=== PATIENT | female | born 1990 | race Caucasian/White ===

== ENCOUNTER → 2017-11-01 | Outpatient (CLI) | payer OTHER ==
[2017-11-01 13:24] LABS: BASO % 0.1 %; BASO ABS # 0.01 K/uL (0-0.2); EOS % 1.3 %; EOS ABS # 0.11 K/uL (0-0.5); HEMATOCRIT 36.4 % (37-47); HEMOGLOBIN 12.8 g/dL (12.0-16.0); IG# 0.01 K/uL (0.00-0.02); LYMPH % 13.1 %; MEAN CELL VOLUME 89.7 fL (80-100); MEAN CORPUSCULAR HEMOGLOBIN 31.5 pg (25-34); MEAN CORPUSCULAR HGB CONC 35.2 g/dl (32-36); MEAN PLATELET VOLUME 10.9 fL (7.4-10.4); MONO ABS # 0.59 K/uL (0.11-0.59); NEUT % 78.4 %; NEUT ABS # 6.57 K/uL (1.4-6.5); PLATELET COUNT 266 K/uL (130-400); RED CELL DISTRIBUTION WIDTH CV 12.5 % (11.5-14.5); RED CELL DISTRIBUTION WIDTH SD 40.2 fL (36.4-46.3); WHITE BLOOD COUNT 8.39 K/uL (4.8-10.8)
== END | disposition home or self-care (01) ==
LOC: C.LAB1850 11:27
PROVIDERS: ATTEND Obstetrics & Gynecology
DX: Z34.01 Encounter for supervision of normal first pregnancy, first trimester (principal)

== ENCOUNTER → 2017-11-01 | Outpatient (CLI) | payer OTHER | END | disposition home or self-care (01) | LOC: C.PAPS 14:17 | PROVIDERS: ATTEND Obstetrics & Gynecology | DX: Z34.01 Encounter for supervision of normal first pregnancy, first trimester (principal) ==

== ENCOUNTER 2017-11-21 21:58 | Emergency (ER) | payer OTHER ==
[~2017-11-21] VITALS: Ht 162.6 cm; Wt 74.5 kg
[2017-11-21 22:01] VITALS: TEMP 36.5; Ht 162.6 cm; Wt 74.5 kg
[2017-11-21] MEDS ORDERED: PRENTAB26 PO (22:25)
[2017-11-21 23:08] VITALS: BP 109/79; PULSE 79; O2SAT 100
--- NOTE | 2017-11-21 23:18 | DIAGNOSTIC IMAGING REPORT ---
RIGHT FOOT 3 VIEWS HISTORY: fall, pain, 5th metatarsal base COMPARISON: None. FINDINGS: There is no fracture or dislocation. Soft tissues are unremarkable. No radiopaque foreign bodies. IMPRESSION: No fractures. Electronically signed by: Renato Olmedo M.D. 11/21/2017 11:17 PM Dictated Date/Time: 11/21/2017 11:14 PM
--- NOTE | 2017-11-21 23:51 | EMERGENCY ROOM VISIT NOTE ---
ED Visit Note First contact with patient: 22:05 CHIEF COMPLAINT: Foot pain HISTORY OF PRESENT ILLNESS: This 27 yo patient presents to the emergency department with family complaining of swelling and pain in the right foot at rest and worse with weight bearing. The patient twisted her foot on the vacuum. The patient rates the pain as throbbing and 6/10. The patient has taken APAP with some relief of the pain. The patient is able to walk. No numbness or weakness. No ankle pain. There are no lacerations of the foot. The patient is able to move all of their toes and their ankle without pain. no previous fracture to this foot. Patient is currently 12 weeks . She did not fall on her abdomen. She has no abdominal pain. REVIEW OF SYSTEMS: GENERAL: A 6 system review of systems was completed with positives and pertinent negatives in the HPI. ALLERGIES: Doxycycline MEDICATIONS: PMH: None SOCIAL HISTORY:no drug use PHYSICAL EXAM: Vital Signs: Reviewed Nurse's notes, vital signs stable. GENERAL : pleasant female, in no acute distress, but appears in pain, well-developed, well-nourished. MUSCULOSKELATAL: There is no visual deformity of the right foot. There is no erythema no ecchymosis. There is no warmth. There is tenderness and swelling over the lateral aspect of the right foot. There is no tenderness over the lateral or medial malleolus. No tenderness of the tib/fib. The range of motion of the foot is not limited secondary to pain. There is no tenderness over the plantar fascia. The skin is intact and there are no lacerations or puncture wounds. Dorsalis pedis pulse 2+. Capillary refill less than 2 seconds. EMERGENCY DEPARTMENT COURSE: I examined the patient. An X-ray of the right foot was reviewed by myself and my Attending and reveals no fracture. The patient was placed in post op shoe and instructed on the use of crutches. Patient was advised to follow-up with orthopedics if symptoms persist or here in the ER sooner for severe pain, numbness, tingling, worsening signs or symptoms or as needed. The patient was discharged home in good condition. heart tones 156. DIAGNOSIS: Right foot sprain TREATMENT: As below Current/Historical Medications Scheduled Multivit/Min/Iron/Fol Ac/Pren ( Vitamin), 1 TAB PO DAILY Allergies Coded Allergies: Doxycycline (Verified Allergy, Mild, Rash, 2/21/18) Vital Signs Date Time Temp Pulse Resp B/P (MAP) Pulse Ox O2 Delivery O2 Flow Rate FiO2 11/21/17 23:08 79 16 109/79 100 Room Air 11/21/17 22:01 36.5 111 18 120/72 99 Room Air Departure Information Impression Primary Impression: Right foot sprain Dispostion Home / Self-Care Condition GOOD Referrals Luis A Cleveland D.O. Forms HOME CARE DOCUMENTATION FORM, Work Instructions, Return To Work: 2 days IMPORTANT VISIT INFORMATION Patient Instructions My [facility] Additional Instructions Acetaminophen(Tylenol) may be used for fever or pain. Use 1000mg every six hours as needed. Avoid using more than 3000mg in a 24 hour period. This medication can be taken if you need to drive, work, or perform activities which may be dangerous when taking narcotic pain medication. Ice compresses for 20 minutes at a time four times daily for 2-3 days. Use the crutches as instructed. Rest and elevate your injury. Continue current medications. Wear postop splint for comfort. Do not have it so tight that you cannot feel your foot. Return to the ER immediately for any numbness, tingling, severe pain, extreme swelling in the extremity or as needed. Call Orthopedics in 3-5 days if symptoms persist to arrange follow up for your injury. Work Instructions Return To Work: 2 days
== END 2017-11-21 23:20 | disposition home or self-care (01) ==
LOC: C.EDB 21:59
DX: O9A.211 Injury, poisoning and certain other consequences of external causes complicating pregnancy, first trimester (principal); S93.601A Unspecified sprain of right foot, initial encounter; W22.8XXA Striking against or struck by other objects, initial encounter; Z3A.12 12 weeks gestation of pregnancy; Z88.1 Allergy status to other antibiotic agents

== ENCOUNTER → 2017-12-28 | Outpatient (CLI) | payer OTHER ==
[~2017-12-28] MED LIST: PRENTAB26 PO
== END | disposition home or self-care (01) ==
LOC: C.LAB1850 09:04
PROVIDERS: ATTEND Obstetrics & Gynecology
DX: Z34.02 Encounter for supervision of normal first pregnancy, second trimester (principal); Z3A.00 Weeks of gestation of pregnancy not specified

== ENCOUNTER → 2018-05-10 | Outpatient (CLI) | payer OTHER | END | disposition home or self-care (01) | LOC: C.LABSPEC 11:07 | PROVIDERS: ATTEND Obstetrics & Gynecology | DX: Z34.03 Encounter for supervision of normal first pregnancy, third trimester (principal) ==

== ENCOUNTER 2021-11-13 07:25 | Inpatient (IN) ==
[2021-11-13] MEDS ORDERED: OXYTOCIN 30 UNITS/500 ML BAG IV PRN ×3 (08:40→15:28)
[2021-11-13] MEDS ORDERED: LACTATED RINGER'S 1,000 ML IV PRN (08:40)
[2021-11-13] MEDS ORDERED: PENICILLIN G POTASSIUM 6 MU in DEXTROSE 5% 250 ML IV STA (08:40)
--- NOTE | 2021-11-13 09:06 | History & Physical Report ---
Date of Service November 13, 2021 Assessment & Plan (1) Encounter for induction of labor: (2) Group B streptococcal infection during : Plan: admit, iv, labs. pitocin for induction. pcn for gbs pos, plan arom when able. fhts categ 1. Admission and Anticipated Discharge Date Admission Date: November 13, 2021 History of Present Illness Chief Complaint: elective induction Primary Care Provider: NO PCP 31yo at 39wk ega for elective induction. She denies rom, vb. +FM. No ctx. Rapid labor and delivery with home with prior . PNC c/b 1. GBS pos PNL Rh pos, RI, gbs pos OBH: x 1, sab x 1 GYNH: nl paps, no stds Allergies Allergy/AdvReac Type Severity Reaction Status Date / Time doxycycline Allergy Intermediate Hives-FULL Verified 11/13/21 07:41 BODY melon Allergy Swelling Verified 11/13/21 07:41 of Lip/Tongue/Throat Home Medications Medication Instructions Recorded Confirmed Type famotidine 20 mg tablet (Pepcid) 20 mg PO BID 04/07/21 11/13/21 History prenat.vits,malorie,tym-[id number]-bmxuz 1 tab PO DAILY 04/07/21 11/13/21 History Patient History Medical History (Updated 11/13/21 @ 09:06 by Ayla Alexander MD, FACOG) History of asthma A CHILD IUFD at less than 20 weeks of gestation Jaw clicking NO LOCKING Labor, precipitous, delivered Migraine Surgical History History of arthroscopy LEFT KNEE X 2 History of tonsillectomy and adenoidectomy Family History Grandfather (Paternal) Diabetes Heart disease Grandmother (Maternal) Diabetes Stroke Other No family history of adverse response to anesthesia Social History (Updated 11/13/21 @ 07:40 by Chasidy Mcgrath, TUNDE) Smoking Status: Former smoker Second Hand Exposure: No; Hx Alcohol Use: No Hx Substance Use: No Preferred Language: Spanish Communication Ability: Effective Visual Impairment: No Limitations Lime Trimmer Required: No Beliefs That Will Affect Care: None marital status: marital status details: Tyrone (36) [phone] Current Living Situation: Family Current Living Situation Comment: lives with spouse and child, 1 dog, 3 cats, spouse to change litter. 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 Other Information That Helps Us Care for You: No Feels Safe at Home: Yes Safety Concerns: Feels Safe At This Time Assistive Devices: Contacts and Glasses Review of Systems as per Subjective / HPI Physical Exam Constitutional: WD/WN, vitals as above Respiratory: normal respiratory effort, lungs clear to auscultation Cardiovascular: Rate/Rhythm: regular rate and regular rhythm Gastrointestinal (Abdomen): soft gravid nt efw 7-8# Musculoskeletal: no edema nontender calves Neurologic: grossly normal Psychiatric: A+Ox3, euthymic affect Genitourinary: OB Exam Abdomen: + estimated weight (7-8#) Manual OB Exam: + cervical dilation (75%) 4 cm and + station -1 OB Exam Monitor Tracing: + external FHT monitor used, + external uterine monitor used (no ctx), + category I and + normal FHT variability Results & Data ([facility]) Vital Signs (Past 12 Hours) Vital Signs Temp Pulse Resp BP 11/13/21 07:35 88 126/84 11/13/21 07:32 97.7 F 18 Code Status & VTE Plan VTE Prophylaxis Plan VTE Prophylaxis will be ordered: No Coding Level of Care Code None Diagnoses Encounter for induction of labor Z34.90 Group B streptococcal infection during O98.819; B95.1
[2021-11-13 09:08] LABS: Hematocrit (blood only) 36.3 % (37-47); Hemoglobin 12.2 g/dL (12.0-16.0); Mean Corpuscular Hemoglobin 30.7 pg (25-34); Mean Corpuscular Hgb Conc 33.6 g/dL (32-36); Mean Corpuscular Volume 91.2 fL (80-100); Mean Platelet Volume 11.6 fL (7.4-10.4); Platelet Count 245 K/uL (130-400); RDW Standard Deviation 46.6 fL (36.4-46.3); Red Blood Count 3.98 M/uL (4.2-5.4)
[2021-11-13] MEDS ORDERED: PENICILLIN G POTASSIUM 3 MU in DEXTROSE 5% 100 ML IV PRN (11:40)
--- NOTE | 2021-11-13 14:19 | Labor Progress Brief Note ---
Date of Service November 13, 2021 Subjective pt breathing with ctx. Assessment & Plan (1) Encounter for induction of labor: (2) Group B streptococcal infection during : Plan: good cx change. fhts categ 1. will see how arom helps pattern. c/w pit. Admission and Anticipated Discharge Date Admission Date: November 13, 2021 Physical Exam Constitutional: WD/WN, vitals as above Genitourinary: Manual OB Exam: + cervical dilation 7 cm, + cervical effacement 100%, + station 0 and + amniotic fluid (AROM) clear OB Exam Monitor Tracing: + external FHT monitor used, + external uterine monitor used (q2-3), + category I and + normal FHT variability Results & Data ([facility]) Vital Signs (Past 12 Hours) Vital Signs Temp Pulse Resp BP 11/13/21 13:32 82 158/97 H 11/13/21 12:39 120 H 121/75 11/13/21 11:31 76 138/75 11/13/21 11:01 98.1 F 18 11/13/21 10:30 81 133/88 11/13/21 09:30 85 124/83 11/13/21 07:35 88 126/84 11/13/21 07:32 97.7 F 18 Coding Level of Care Code None Diagnoses Encounter for induction of labor Z34.90 Group B streptococcal infection during O98.819; B95.1
[2021-11-13] MEDS ORDERED: LIDOCAINE 1% LOCAL 20 ML VIAL ONE (14:27)
[2021-11-13] MEDS ORDERED: METHYLERGONOVINE MALEATE 0.2 MG/ML AMP ONE (14:51)
--- NOTE | 2021-11-13 14:59 | Delivery Summary ---
Vaginal Delivery Summary Date of Service November 13, 2021 Vaginal Delivery Summary The patient dilated to complete and pushed to deliver a viable male Apgars 9 and 9 via over intact perineum. Shoulders and body delivered with ease rapidly with maternal expulsive efforts with hand and body cord noted. was vigorous and crying at . Cord clamped at 30 seconds of life and infant to maternal abdomen where the cord was then doubly clamped and cut. Vaginal with right labia laceration noted and 1% local lidocaine anesthesia given and then repaired with 3-0 vicryl in routine fashion. Episodes of bleeding in bursts noted but placenta not delivering spontaneously. At 20min post delivery, more traction given to cord and avulsed with placenta partially in vagina. Audio/Video Engineer's hand through vagina with partial manual extraction of placenta. Additional sweep of uterus with well contracted fundus and no remaining products in NINA. Dilute pitocin begun and bp checked and IM methergine x 1 given. Hemostasis improved. Cervix and sulci intact. EBL 500 cc. Mother and baby stable in recovery. [facility] Vaginal Delivery Charge Delivery Type Details:
[2021-11-13] MEDS ORDERED: IBUPROFEN 600 MG TAB PO ONE (15:04)
[2021-11-13] MEDS ORDERED: oxyCODONE/ACETAMINOPHEN 5mg/325mg TAB PO PRN (15:28)
[2021-11-13] MEDS ORDERED: BENZOCAINE 20% AER SPR 82.5 GM CAN EXT PRN (15:28)
[2021-11-13] MEDS ORDERED: DIPHTHERIA/TETANUS/PERTUSSIS 0.5 ML SYR/VIAL IM ONE (15:28)
[2021-11-13] MEDS ORDERED: METHYLERGONOVINE MALEATE 0.2 MG/ML AMP IM ONE (15:28)
[2021-11-13] MEDS ORDERED: ACETAMINOPHEN 325 MG TAB PO PRN (15:28)
[2021-11-13] MEDS ORDERED: HYDROCORTISONE ACETATE 25 MG SUPP PR PRN (15:28)
[2021-11-13] MEDS ORDERED: OXYTOCIN 20 UNITS in LACTATED RINGER'S 1,000 ML IV SCH (15:28)
[2021-11-13] MEDS: IBUPROFEN 600 MG TAB PO PRN (21:23)
[2021-11-13] MEDS: DOCUSATE SODIUM 100 MG CAP PO SCH (21:23)
[2021-11-13] MEDS: FAMOTIDINE 20 MG TAB PO SCH (21:34)
[2021-11-14] MEDS: IBUPROFEN 600 MG TAB PO PRN ×3 (02:21→12:13)
[2021-11-14 07:05] LABS: Hematocrit (blood only) 28.9 % (37-47); Hemoglobin 9.7 g/dL (12.0-16.0)
[2021-11-14] MEDS ORDERED: PRENATAL VITAMIN 1 TAB PO SCH (08:00)
[2021-11-14] MEDS: DOCUSATE SODIUM 100 MG CAP PO SCH (08:27)
[2021-11-14] MEDS: FAMOTIDINE 20 MG TAB PO SCH (08:47)
--- NOTE | 2021-11-14 12:50 | Obstetrical Progress Note ---
Date of Service November 14, 2021 Assessment & Plan (1) examination following vaginal delivery: stable, routine care. desires dc home. f/u 6 wks pp check. instructions reviewed. Day #:: 1 Subjective Ambulation: ambulating normally Voiding: no voiding problems Diet Tolerance:: regular diet Lochia:: Small Feeding Type:: breast feeding NO PAIN ISSUES Constitutional: + as per Subjective / HPI Physical Exam Constitutional WD/WN, vitals as above Respiratory normal respiratory effort, lungs clear to auscultation Cardiovascular Rate/Rhythm: regular rate and regular rhythm Gastrointestinal (Abdomen) Inspection/Auscultation: abdomen normal to inspection Percussion/Palpation: abdomen soft Fundus firm 2cm down Musculoskeletal nt calves no edema Neurologic grossly normal Psychiatric A+Ox3, euthymic affect Results & Data ([facility]) Vital Signs (Past 12 Hours) Vital Signs Temp Pulse Resp BP Pulse Ox 11/14/21 11:07 98.1 F 97 H 20 114/77 98 11/14/21 07:21 97.3 F L 84 16 124/87 98 11/14/21 03:25 98.1 F 94 H 18 115/74
== END 2021-11-14 15:58 | disposition home or self-care (01) | DRG 807 ==
LOC: 4S1 07:25 → 4S2 17:47

== ENCOUNTER 2025-04-16 07:16 | Inpatient (IN) ==
[2025-04-16] MEDS ORDERED: OXYTOCIN 30 UNITS/NSS 30 UNITS/500 ML BAG IV PRN ×2 (07:45→22:49)
[2025-04-16 08:53] LABS: Hematocrit (blood only) 33.1 % (37.0-47.0); Hemoglobin 11.2 g/dl (12.0-16.0); Mean Corpuscular Hemoglobin 28.9 pg (25.0-34.0); Mean Corpuscular Volume 85.5 fL (80.0-100.0); Platelet Count 248 K/uL (130-400); RDW Standard Deviation 42.4 fL (36.4-46.3); Red Blood Count 3.87 M/uL (4.20-5.40); White Blood Count 9.21 K/ul (4.8-10.8)
--- NOTE | 2025-04-16 11:52 | History & Physical Report ---
Date of Service April 16, 2025 Assessment & Plan (1) Elderly multigravida: Plan: Deena is a 34-year-old G5, P2 currently at 39 weeks 0 days gestational age presents for induction of labor secondary to precipitous delivery. Category 1 tracing noted. Will start induction with oxytocin per regular protocol plan for rupture of membranes when appropriate. GBS negative. Vitals within normal limits (2) Term : Admission and Anticipated Discharge Date Admission Date: April 16, 2025 History of Present Illness Primary Care Provider: NO PCP Deena is a 34-year-old G5, P2 currently at 39 weeks 0 days gestational age presents for induction of labor for history of precipitous delivery. otherwise complicated by AMA. OB Labs: Blood Type A Positive 11/07/24 Antibody Screen NEGATIVE 11/07/24 Hgb 11.6 g/dl (12.0-16.0) L 02/12/25 Hct 33.9 % (37.0-47.0) L 02/12/25 MCV 88.4 fL (80.0-100.0) 11/07/24 Plt Count 280 K/uL (130-400) 11/07/24 Rubella IgG Antibody Immune (Immune) 11/07/24 RPR Nonreactive (Nonreactive) 01/11/24 Treponema pallidum Ab Negative (Negative) 02/12/25 Hep Bs Antigen Negative (Negative) 11/07/24 Hep Bs Antigen NON-REACTIVE (NON-REACTIVE) 01/11/24 Hepatitis C Antibody Negative (Negative) 11/07/24 Hepatitis C Ab (EIA) NON-REACTIVE (NON-REACTIVE) 01/11/24 HIV 1&2 Ab/P24 Ag 4thGn Negative (Negative) 11/07/24 HIV (1&2) Ag & Ab Conf NON-REACTIVE (NON-REACTIVE) 01/11/24 Glucose 1 Hr 50 gm 118 mg/dl (70-130) 02/12/25 Maternal Serum AFP 48.2 ng/mL 11/07/24 OB Optional Labs: Chlamydia trachomatis RNA Not Detected (NotDetected) 10/09/24 Neisseria gonorrhoeae RNA Not Detected (NotDetected) 10/09/24 Alpha Fetoprotein Triple Screen SEE NOTE 11/07/24 Alpha Fetoprotein 40.1 NG/ML 12/28/17 Labs Reviewed: cf/sma neg 2020 smp Allergies Allergy/AdvReac Type Severity Reaction Status Date / Time doxycycline Allergy Intermediate Hives Verified 04/16/25 07:27 (full body) melon Allergy Swelling Verified 04/16/25 07:27 of Lip/Tongue/Throat Home Medications Medication Instructions Recorded Confirmed Type prenat.vits,malorie,klp-ipwo-hcsca 1 tab PO DAILY 04/07/21 04/16/25 History cetirizine 10 mg capsule 10 mg PO DAILY PRN Allergy Symptoms 01/11/24 04/16/25 History omeprazole magnesium 20 mg 20 mg PO DAILY #90 tabs 02/13/25 04/16/25 Rx tablet,delayed release (Prilosec OTC) Patient History Medical History (Updated 04/16/25 @ 11:51 by Jhon Orozco MD) Miscarriage History of COVID-19 08/2022: mild symptoms > resolved Seasonal allergies History of chicken pox Jaw clicking no locking History of asthma As child Migraine hx Surgical History S/P dilatation and curettage History of tonsillectomy and adenoidectomy History of arthroscopy Family History Grandfather (Paternal) Diabetes Heart disease Grandmother (Maternal) Diabetes Stroke Other No family history of adverse response to anesthesia Denies family history of Ovarian cancer Breast cancer Colorectal cancer Social History (Updated 04/16/25 @ 07:27 by Celeste Wilson RN) Smoking Status: Former smoker Tobacco Type: Cigarettes Second Hand Exposure: No; Do You Dip or Chew Tobacco: No; Hx Alcohol Use: Yes Hx Substance Use: No Preferred Language: Indonesian Communication Ability: Effective Visual Impairment: No Limitations Garbage Collector Required: No Beliefs That Will Affect Care: None marital status: marital status details: Tyrone (41) [phone] Current Living Situation: Spouse Current Living Situation Comment: lives with spouse, 2 children, 1 dog, 2 cats, spouse to change litter. 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 Other Information That Helps Us Care for You: No Feels Safe at Home: Yes Safety Concerns: Feels Safe At This Time Assistive Devices: None Physical Exam Genitourinary: Manual OB Exam: + cervical dilation 4 cm, + cervical effacement 50% and 80% and + station -2 OB Exam Monitor Tracing: + external FHT monitor used, + external uterine monitor used, + category I and + normal FHT variability Results & Data Vital Signs (Past 12 Hours) Vital Signs Temp Pulse Resp BP O2 Del Method 04/16/25 07:29 36.6 C 18 Room Air 04/16/25 07:23 86 124/80 Coding Level of Care Code None Diagnoses Multigravida of advanced maternal age in third trimester O09.523 Trimester: third trimester Term Z34.90 (1) Elderly multigravida Trimester: third trimester Qualified Code(s): O09.523 - Supervision of elderly multigravida, third trimester
[2025-04-16] MEDS: LACTATED RINGER'S 1,000 ML IV PRN (13:37)
[2025-04-16] MEDS: OXYTOCIN 30 UNITS/NSS 30 UNITS/500 ML BAG IV PRN (13:37)
[2025-04-16] MEDS: LIDOCAINE 1% LOCAL 20 ML VIAL INFIL PRN (22:40)
[2025-04-16] MEDS ORDERED: HYDROCORTISONE ACETATE 25 MG SUPP PR PRN (22:49)
[2025-04-16] MEDS: IBUPROFEN 600 MG TAB PO ONE (22:50)
--- NOTE | 2025-04-16 22:55 | Delivery Summary ---
Vaginal Delivery Summary Date of Service April 16, 2025 Vaginal Delivery Summary and 2nd Degree LAC Progressed to 10 cm dilated, 100% effaced, +2 station pushed over intact perineum without anesthesia and delivered a viable male with weight and Apgars pending. Head of the delivered without difficulty quickly followed by shoulders and body. was noted be vigorous upon delivery and a 1 minute delayed cord clamping was initiated. Cord was doubly clamped and cut remained on the maternal abdomen. Cord blood obtained and attention turned to delivery the placenta was delivered intact with three-vessel cord gentle cord traction. Inspection of perineum vagina and cervix was noted be a second-degree perineal laceration. Patient was given 20 cc of lidocaine total. The surgery laceration was repaired traditional crown stitch using 3-0 Vicryl. An additional soehcf-sa-trjhi stitch was noted at the perineum vaginal junction due to bleeding noted at end of repair. Needle sponge and instrument counts were correct at the completion of the case. Both mother and stable in the immediate postdelivery timeframe. No complications noted and blood loss per QBL in chart [facility] Vaginal Delivery Charge Delivery Type Details: and 2nd Degree LAC
[2025-04-17] MEDS: DIPHTHER/TETAN/PERTUS Vaccine (Tdap, Adol/Adult) 0.5mL IM ONE (00:29)
[2025-04-17] MEDS: BENZOCAINE 20% SPRY 85 APPLN/85 GM CAN EXT PRN (00:37)
[2025-04-17] MEDS: IBUPROFEN 600 MG TAB PO PRN (04:23)
--- NOTE | 2025-04-17 05:49 | Obstetrical Progress Note ---
Date of Service <Rafa Hinton MD - Last Filed: 04/17/25 08:14> April 17, 2025 Assessment & Plan <Rafa Hinton MD - Last Filed: 04/17/25 08:14> (1) care and examination: 34yo post- day 1 s/p Fells well today Continue post- care Encourage ambulation and Pain controlled with Ibuprofen Vital Signs and Hgb stable <Jhon Orozco MD - Last Filed: 04/20/25 11:19> (1) care and examination: Subjective <Rafa Hinton MD - Last Filed: 04/17/25 08:14> 34yo post- day 1 s/p Ambulation: Ambulating normally Voiding: No voiding problems Passing Gas:: Yes Diet Tolerance:: regular diet Lochia:: Small Feeding Type:: Current Pain Level: 3/10 controlled with Ibuprofen Resting comfortably this AM in NAD. Denies HUMMEL, CP, SOB, N/V/D, LE pain/swelling. Physical Exam <Rafa Hinton MD - Last Filed: 04/17/25 08:14> General: patient resting comfortably, NAD, non-toxic in appearance, answers questions appropriately Skin: warm, dry, intact Heart: S1/S2 heard, regular, no m/r/g Lungs: equal air entry bilaterally, no rales/rhonchi/wheezes Abd: Normoactive BS, soft, NT/ND, uterine fundus firm below umbilicus Ext: warm, no clubbing/cyanosis or edema, Jose F's neg Neuro: nonfocal, patient AAOx4, speech intact, no facial droop, moving all extremities on command Results & Data <Rafa Hinton MD - Last Filed: 04/17/25 08:14> Vital Signs (Past 12 Hours) Vital Signs Temp Pulse Pulse Resp BP BP Pulse Ox 04/17/25 04:59 36.5 C 71 18 99/63 L 04/17/25 01:00 36.5 C 78 16 122/75 96 04/17/25 00:36 36.9 C 18 04/17/25 00:36 101 H 130/80 04/17/25 00:08 18 04/16/25 23:53 96 H 136/73 04/16/25 23:38 16 04/16/25 23:38 75 132/63 04/16/25 23:23 18 04/16/25 23:23 81 131/60 04/16/25 23:08 16 04/16/25 23:08 88 128/75 04/16/25 22:54 16 04/16/25 22:54 65 126/67 04/16/25 22:39 18 04/16/25 22:39 76 132/60 04/16/25 21:00 86 140/88 04/16/25 19:59 86 136/72 04/16/25 19:02 97 H 131/94 04/16/25 19:00 36.9 C 04/16/25 18:31 76 120/81 O2 Del Method 04/17/25 04:59 Nasal Cannula 04/17/25 01:00 Room Air 04/17/25 00:36 04/17/25 00:36 04/17/25 00:08 04/16/25 23:53 04/16/25 23:38 04/16/25 23:38 04/16/25 23:23 04/16/25 23:23 04/16/25 23:08 04/16/25 23:08 04/16/25 22:54 04/16/25 22:54 04/16/25 22:39 04/16/25 22:39 04/16/25 21:00 04/16/25 19:59 04/16/25 19:02 04/16/25 19:00 04/16/25 18:31 Supervising Physician <Jhon Orozco MD - Last Filed: 04/20/25 11:19> Co-Signing Physician Notes Patient seen with resident and agree with the above findings and plan. Routine post care Resident Activity Tracking <Rafa Hinton MD - Last Filed: 04/17/25 08:14> Resident Involvement: Resident Care Provided Care Provided: OB Delivery
[2025-04-17 07:50] LABS: Hematocrit (blood only) 28.7 % (37.0-47.0); Hemoglobin 9.6 g/dl (12.0-16.0)
[2025-04-17] MEDS: PRENATAL VITAMIN 1 TAB PO SCH (08:27)
[2025-04-17] MEDS: FERROUS SULFATE 325 MG TAB PO SCH (08:27)
[2025-04-17] MEDS: DOCUSATE SODIUM 100 MG CAP PO SCH (08:27)
[2025-04-17 11:07] VITALS: O2SAT 98
[2025-04-17] MEDS: ACETAMINOPHEN 325 MG TAB PO PRN (12:01)
[2025-04-17 12:44] VITALS: RESP 16
--- NOTE | 2025-04-18 08:08 | Obstetrical Progress Note ---
Date of Service <Rafa Hinton MD - Last Filed: 04/18/25 08:08> April 18, 2025 Assessment & Plan <Rafa Hinton MD - Last Filed: 04/18/25 08:08> (1) care and examination: 34yo post- day 2 s/p Fells well today Continue post- care Encourage ambulation and Pain controlled with Ibuprofen and Tylenol Vital Signs and Hgb stable D/c home and f/u with OB provider in 6 weeks D/c instructions discussed <Leni Zhao DO - Last Filed: 04/18/25 08:14> (1) care and examination: Subjective <Rafa Hinton MD - Last Filed: 04/18/25 08:08> 34yo post- day 2 s/p Ambulation: Ambulating normally Voiding: No voiding problems Passing Gas:: Yes Diet Tolerance:: regular diet Lochia:: Small Feeding Type:: Current Pain Level: 1/10 controlled with Ibuprofen and Tylenol Resting comfortably this AM in NAD. Denies HUMMEL, CP, SOB, N/V/D, LE pain/swelling. Physical Exam <Rafa Hinton MD - Last Filed: 04/18/25 08:08> General: patient resting comfortably, NAD, non-toxic in appearance, answers questions appropriately Skin: warm, dry, intact Heart: S1/S2 heard, regular, no m/r/g Lungs: equal air entry bilaterally, no rales/rhonchi/wheezes Abd: Normoactive BS, soft, NT/ND, uterine fundus firm below umbilicus Ext: warm, no clubbing/cyanosis or edema, Jose F's neg Neuro: nonfocal, patient AAOx4, speech intact, no facial droop, moving all extremities on command Results & Data <Rafa Hinton MD - Last Filed: 04/18/25 08:08> Vital Signs (Past 12 Hours) Vital Signs Temp Pulse Resp BP Pulse Ox O2 Del Method 04/18/25 02:00 36.8 C 94 H 16 103/78 98 Room Air Supervising Physician <Leni Zhao DO - Last Filed: 04/18/25 08:14> Co-Signing Physician Notes Resident Physician Supervision Note: I interviewed and examined the patient. Discussed with Dr. Hinton and agree with findings and plan as documented in the note. Any exceptions or clarifications are listed here: PPD2 doing well, DC home. Documented By: Leni Zhao DO Resident Activity Tracking <Rafa Hinton MD - Last Filed: 04/18/25 08:08> Resident Involvement: Resident Care Provided Care Provided: OB Delivery
[2025-04-18 11:37] VITALS: BP 114/75; PULSE 74; TEMP 98.1
== END 2025-04-18 13:15 | disposition home or self-care (01) | DRG 807 ==
LOC: 4S1 07:16 → 4E2 04-17 01:02